=== PATIENT | female | born 1945 | race Caucasian/White ===

== ENCOUNTER 2018-09-12 11:42 | Inpatient (IN) | payer MEDICARE, BC ==
[~2018-09-12] VITALS: Ht 157.5 cm; Wt 80.7 kg
[2018-09-12] VITALS (361 sets, daily range): BP systolic 119–145; BP diastolic 51–60; PULSE 100–120; TEMP 97.3–99.8; O2SAT 94–100
[~2018-09-12 11:42] MED LIST: AGGRENOX ER 251 CER PO; HUMALOG100 U/ML SQ; LANTUS100 U/ML SQ; LEXAPRO20 MG PO; MOBIC15 MG PO; PRINIVIL10 MG PO; SYNTHROID 0.10.15 MG PO
[2018-09-12 13:43] LABS: HEMOGLOBIN 11.8 g/dl (12.5-16.0); MEAN CELL VOLUME 92 fl (80.0-100.0); MEAN CORPUSCULAR HEMOGLOBIN 31 pg (27.0-31.0); MEAN CORPUSCULAR HGB CONC 34 g/dl (33.0-37.0); MEAN PLATELET VOLUME 10.9 fl (7.4-10.4); PLATELET COUNT 265 K/mm3 (130-400); REDCELL DISTRIBUTION WIDTH-CV 13.6 % (11.5-14.5)
[2018-09-12 13:46] LABS: HEMATOCRIT 35.1 % (37.0-47.0)
[2018-09-12 13:47] LABS: PH 5 (5-8); SQUAMOUS EPITHELIAL 0-2 /hpf; URINE APPEARANCE Clear; URINE BACTERIA None Seen /hpf; URINE BILIRUBIN Negative (NEGATIVE); URINE BLOOD Negative (NEGATIVE); URINE COLOR Yellow; URINE GLUCOSE 3+ (NEGATIVE); URINE KETONE Trace (NEGATIVE); URINE LEUKOCYTE ESTERASE Negative (NEGATIVE); URINE NITRATE Negative (NEGATIVE); URINE PROTEIN(semi-quant) Negative (NEGATIVE); URINE RBC 0-2 /hpf; URINE UROBILINOGEN Negative (NEGATIVE)
[2018-09-12 13:55] LABS: ALBUMIN 3.5 gm/dL (3.5-5.0); BILIRUBIN,TOTAL 0.6 mg/dL (0.0-1.0); CALCIUM 8.7 mg/dL (8.4-10.2); POTASSIUM 3.8 mmol/L (3.4-5.0); TOTAL PROTEIN 6.1 gm/dL (6.4-8.2)
[2018-09-12 14:03] LABS: PRE ALBUMIN 13.1 mg/dL (17.6-36.0)
[2018-09-12 14:16] LABS: BAND 13 % (0-10); LYMPHOCYTE 6 % (20.0-51.0); NEUTROPHILS 80 % (42.0-75.2); PLATELET ESTIMATE NORMAL (NORMAL)
[2018-09-12 14:17] LABS: TOXIC GRANULATION PRESENT
[2018-09-12 14:23] LABS: INR 1.2 (0.8-3.0); PROTHROMBIN TIME 13.7 SECONDS (9.7-12.8)
[2018-09-12] MEDS ORDERED: REGLAN 10MG10 MG/TAB PO (14:51)
[2018-09-12] MEDS ORDERED: COZAAR100 MG PO (14:52)
[2018-09-12] MEDS ORDERED: PLAVIX 75MG TAB75 MG PO (14:53)
[2018-09-12 15:41] LABS: COLLECTION METHOD CLEAN CATCH
[2018-09-12 18:34] LABS: MAGNESIUM 1.6 mg/dL (1.6-2.3); PHOSPHOROUS 3.1 mg/dL (2.5-4.5)
[2018-09-12 21:48] LABS: CALCIUM 8.9 mg/dL (8.4-10.2); CREATININE, serum 0.94 mg/dL (0.52-1.25); POTASSIUM 3.5 mmol/L (3.4-5.0)
[2018-09-12 22:03] LABS: TROPONIN-I 0.184 ng/mL (0.000-0.034)
[2018-09-13] VITALS (1036 sets, daily range): BP systolic 104–211; BP diastolic 53–121; PULSE 96–116; TEMP 97.4–100; O2SAT 89–100
[2018-09-13 06:01] LABS: HEMOGLOBIN 11.1 g/dl (12.5-16.0); MEAN CELL VOLUME 94 fl (80.0-100.0); MEAN CORPUSCULAR HEMOGLOBIN 31 pg (27.0-31.0); MEAN CORPUSCULAR HGB CONC 33 g/dl (33.0-37.0); MEAN PLATELET VOLUME 11.1 fl (7.4-10.4); PLATELET COUNT 213 K/mm3 (130-400); RED BLOOD COUNT 3.59 M/mm3 (4.10-5.30); REDCELL DISTRIBUTION WIDTH-CV 13.9 % (11.5-14.5)
[2018-09-13 06:10] LABS: HEMATOCRIT 33.7 % (37.0-47.0)
[2018-09-13 06:16] LABS: CALCIUM 8.6 mg/dL (8.4-10.2); CREATININE, serum 0.86 mg/dL (0.52-1.25); PHOSPHOROUS 3.7 mg/dL (2.5-4.5); POTASSIUM 5.1 mmol/L (3.4-5.0)
[2018-09-13 07:39] LABS: BAND 25 % (0-10); LYMPHOCYTE 2 % (20.0-51.0); NEUTROPHILS 65 % (42.0-75.2); PLATELET ESTIMATE NORMAL (NORMAL)
[2018-09-13 07:40] LABS: TOXIC GRANULATION PRESENT
[2018-09-13 11:19] LABS: PARTIAL THROMBOPLASTIN TIME 26.1 SECONDS (26.0-37.0)
[2018-09-14 03:14] LABS: HEMOGLOBIN 10.9 g/dl (12.5-16.0); MEAN CELL VOLUME 92 fl (80.0-100.0); MEAN CORPUSCULAR HEMOGLOBIN 30 pg (27.0-31.0); MEAN CORPUSCULAR HGB CONC 33 g/dl (33.0-37.0); MEAN PLATELET VOLUME 10.6 fl (7.4-10.4); PLATELET COUNT 184 K/mm3 (130-400); RED BLOOD COUNT 3.58 M/mm3 (4.10-5.30); REDCELL DISTRIBUTION WIDTH-CV 14.2 % (11.5-14.5)
[2018-09-14 03:17] LABS: HEMATOCRIT 32.9 % (37.0-47.0)
[2018-09-14 03:25] LABS: ALBUMIN 2.6 gm/dL (3.5-5.0); BILIRUBIN UNCONJUGATED 0.4 mg/dL (0.0-1.1); BILIRUBIN,DIRECT 0.2 mg/dL (0.0-0.4); BILIRUBIN,TOTAL 0.6 mg/dL (0.0-1.0); CREATININE, serum 0.6 mg/dL (0.52-1.25); POTASSIUM 3.7 mmol/L (3.4-5.0); TOTAL PROTEIN 5.3 gm/dL (6.4-8.2)
[2018-09-14 03:37] LABS: BAND 17 % (0-10); EOSINOPHIL 1 % (0-4); NEUTROPHILS 64 % (42.0-75.2)
[2018-09-14 03:54] LABS: HYPOCHROMIA 1+; LYMPHOCYTE 16 % (20.0-51.0); PLATELET ESTIMATE NORMAL (NORMAL)
[2018-09-14 04:02] LABS: TROPONIN-I 0.106 ng/mL (0.000-0.034)
[2018-09-14 05:07] VITALS: BP 162/73; PULSE 96; TEMP 98.3
[2018-09-14 07:55] VITALS: BP 161/73; PULSE 98; TEMP 97.9
[2018-09-14 10:36] LABS: PATHOLOGY DIFF REVIEW OK
[2018-09-14 12:00] VITALS: BP 156/89; PULSE 96; TEMP 98
[2018-09-14 16:00] VITALS: BP 183/85; PULSE 92; TEMP 98.1
[2018-09-14 20:00] VITALS: BP 165/60; BP 165/90; PULSE 89; TEMP 97.4
[2018-09-15] VITALS (16 sets, daily range): BP systolic 128–1447; BP diastolic 56–75; PULSE 66–92; TEMP 97.1–98.7
[2018-09-15 03:38] LABS: BASO % 0.2 % (0.0-2.0); EOS # 0.4 (0.0-0.7); EOS % 2.5 % (0-4.0); GRAN # 14.2 (1.4-6.5); GRAN % 83.4 % (42.2-75.2); HEMOGLOBIN 10.1 g/dl (12.5-16.0); LYMPH # 1.5 (1.2-3.4); LYMPH % 8.5 % (20.0-51.0); MEAN CELL VOLUME 90 fl (80.0-100.0); MEAN CORPUSCULAR HEMOGLOBIN 31 pg (27.0-31.0); MEAN CORPUSCULAR HGB CONC 34 g/dl (33.0-37.0); MEAN PLATELET VOLUME 10.6 fl (7.4-10.4); MONO # 0.8 (0.1-0.6); MONO % 4.9 % (1.7-9.3); PLATELET COUNT 179 K/mm3 (130-400); RED BLOOD COUNT 3.26 M/mm3 (4.10-5.30); REDCELL DISTRIBUTION WIDTH-CV 13.9 % (11.5-14.5)
[2018-09-15 03:40] LABS: HEMATOCRIT 29.4 % (37.0-47.0)
[2018-09-15 03:49] LABS: CALCIUM 7.9 mg/dL (8.4-10.2); CREATININE, serum 0.53 mg/dL (0.52-1.25)
[2018-09-15 03:51] LABS: POTASSIUM 2.7 mmol/L (3.4-5.0)
[2018-09-15 07:27] LABS: CALCIUM 8.1 mg/dL (8.4-10.2); CREATININE, serum 0.49 mg/dL (0.52-1.25); MAGNESIUM 1.9 mg/dL (1.6-2.3); POTASSIUM 3.1 mmol/L (3.4-5.0)
[2018-09-16] VITALS (14 sets, daily range): BP systolic 127–184; BP diastolic 47–83; PULSE 67–94; TEMP 97.5–98.7
[2018-09-16 06:55] LABS: BASO % 0.3 % (0.0-2.0); EOS # 0.8 (0.0-0.7); EOS % 5.8 % (0-4.0); GRAN # 10.6 (1.4-6.5); GRAN % 73.5 % (42.2-75.2); HEMOGLOBIN 11.4 g/dl (12.5-16.0); LYMPH # 1.9 (1.2-3.4); LYMPH % 12.9 % (20.0-51.0); MEAN CELL VOLUME 91 fl (80.0-100.0); MEAN CORPUSCULAR HEMOGLOBIN 30 pg (27.0-31.0); MEAN CORPUSCULAR HGB CONC 33 g/dl (33.0-37.0); MEAN PLATELET VOLUME 11.2 fl (7.4-10.4); MONO % 7.1 % (1.7-9.3); PLATELET COUNT 195 K/mm3 (130-400); RED BLOOD COUNT 3.76 M/mm3 (4.10-5.30)
[2018-09-16 07:04] LABS: CALCIUM 8.2 mg/dL (8.4-10.2); CREATININE, serum 0.51 mg/dL (0.52-1.25); POTASSIUM 3.3 mmol/L (3.4-5.0)
[2018-09-16 07:23] LABS: HEMATOCRIT 34.2 % (37.0-47.0)
[2018-09-17 03:51] VITALS: BP 161/64; PULSE 87; TEMP 98.4
[2018-09-17 07:03] LABS: BASO % 0.3 % (0.0-2.0); EOS # 0.5 (0.0-0.7); EOS % 3.7 % (0-4.0); GRAN # 9.3 (1.4-6.5); GRAN % 73.1 % (42.2-75.2); HEMOGLOBIN 10.3 g/dl (12.5-16.0); LYMPH # 1.5 (1.2-3.4); LYMPH % 11.6 % (20.0-51.0); MEAN CELL VOLUME 91 fl (80.0-100.0); MEAN CORPUSCULAR HEMOGLOBIN 31 pg (27.0-31.0); MEAN CORPUSCULAR HGB CONC 34 g/dl (33.0-37.0); MEAN PLATELET VOLUME 10.9 fl (7.4-10.4); MONO # 1.2 (0.1-0.6); MONO % 9.7 % (1.7-9.3); PLATELET COUNT 188 K/mm3 (130-400); RED BLOOD COUNT 3.35 M/mm3 (4.10-5.30); REDCELL DISTRIBUTION WIDTH-CV 13.8 % (11.5-14.5)
[2018-09-17 07:05] LABS: HEMATOCRIT 30.4 % (37.0-47.0)
[2018-09-17 07:07] LABS: INR 1.2 (0.8-3.0); PROTHROMBIN TIME 13.2 SECONDS (9.7-12.8)
[2018-09-17 07:19] LABS: CALCIUM 7.9 mg/dL (8.4-10.2); CREATININE, serum 0.54 mg/dL (0.52-1.25); POTASSIUM 3.9 mmol/L (3.4-5.0)
[2018-09-17 08:00] VITALS: BP 161/64; PULSE 85; TEMP 98.2
[2018-09-17 12:24] VITALS: BP 147/62; PULSE 86; TEMP 97.9
[2018-09-17 17:06] VITALS: BP 149/59; PULSE 86; TEMP 97.3
[2018-09-17 19:26] VITALS: BP 141/51; PULSE 87; TEMP 97.5
[2018-09-17 23:20] VITALS: BP 149/58; PULSE 90; TEMP 98.5
[2018-09-18 04:22] VITALS: BP 157/65; PULSE 91; TEMP 97.8
[2018-09-18 06:08] LABS: HEMOGLOBIN 10.1 g/dl (12.5-16.0); MEAN CELL VOLUME 90 fl (80.0-100.0); MEAN CORPUSCULAR HEMOGLOBIN 30 pg (27.0-31.0); MEAN CORPUSCULAR HGB CONC 34 g/dl (33.0-37.0); MEAN PLATELET VOLUME 10.7 fl (7.4-10.4); PLATELET COUNT 185 K/mm3 (130-400); RED BLOOD COUNT 3.33 M/mm3 (4.10-5.30); REDCELL DISTRIBUTION WIDTH-CV 13.8 % (11.5-14.5)
[2018-09-18 06:17] LABS: HEMATOCRIT 30.1 % (37.0-47.0)
[2018-09-18 06:24] LABS: ALBUMIN 2.2 gm/dL (3.5-5.0); BILIRUBIN,TOTAL 0.4 mg/dL (0.0-1.0); CALCIUM 8.2 mg/dL (8.4-10.2); CREATININE, serum 0.5 mg/dL (0.52-1.25); POTASSIUM 3.4 mmol/L (3.4-5.0); TOTAL PROTEIN 4.8 gm/dL (6.4-8.2)
[2018-09-18 06:42] LABS: INR 1.2 (0.8-3.0); PROTHROMBIN TIME 13.5 SECONDS (9.7-12.8)
[2018-09-18 07:02] LABS: BAND 20 % (0-10); EOSINOPHIL 6 % (0-4); LYMPHOCYTE 10 % (20.0-51.0); METAMYELOCYTE 1 % (0-0); NEUTROPHILS 53 % (42.0-75.2); PLATELET ESTIMATE NORMAL (NORMAL)
[2018-09-18 08:46] VITALS: BP 163/61; PULSE 95; TEMP 98.1
[2018-09-18] MEDS ORDERED: ARICEPT 5MG PO (08:49)
[2018-09-18] MEDS ORDERED: AMOXICILLIN 8751 TAB PO (08:50)
[2018-09-18] MEDS ORDERED: NORVASC 10MG10 MG PO (08:52)
[2018-09-18] MEDS ORDERED: ASPI325T6 PO (08:54)
[2018-09-18] MEDS ORDERED: LANTUS100 U/ML SQ (08:55)
[2018-09-18] MEDS ORDERED: HUMALOG100 U/ML SQ (08:55)
[2018-09-18] MEDS ORDERED: ULTRAM 50MG TAB50 MG PO (08:58)
[2018-09-18 10:30] VITALS: BP 163/61; PULSE 95; TEMP 98.1
== END 2018-09-18 11:27 | DRG 469 ==
LOC: SURG 11:42 → ICU 17:54 → SURG 09-13 17:48
PROVIDERS: Hospitalist; Internal Medicine Cardiovascular Disease; Internal Medicine Interventional Cardiology; Orthopaedic Surgery; Physician Assistant
PROC: B2111ZZ Fluoroscopy of Multiple Coronary Arteries using Low Osmolar Contrast (ICD-10-PCS; 2018-09-15)
PROC: B2151ZZ Fluoroscopy of Left Heart using Low Osmolar Contrast (ICD-10-PCS; 2018-09-15)
PROC: 4A023N7 Measurement of Cardiac Sampling and Pressure, Left Heart, Percutaneous Approach (ICD-10-PCS; 2018-09-15)
PROC: 0SRS0J9 Replacement of Left Hip Joint, Femoral Surface with Synthetic Substitute, Cemented, Open Approach (ICD-10-PCS; principal; 2018-09-16 16:00)
DX: S72.002A Fracture of unspecified part of neck of left femur, initial encounter for closed fracture (principal); E11.00 Type 2 diabetes mellitus with hyperosmolarity without nonketotic hyperglycemic-hyperosmolar coma (NKHHC); G93.41 Metabolic encephalopathy; I21.A1 Myocardial infarction type 2; W18.30XA Fall on same level, unspecified, initial encounter; Z79.4 Long term (current) use of insulin; I10 Essential (primary) hypertension; Z87.891 Personal history of nicotine dependence; Z86.73 Personal history of transient ischemic attack (TIA), and cerebral infarction without residual deficits; E87.6 Hypokalemia; F03.90 Unspecified dementia, unspecified severity, without behavioral disturbance, psychotic disturbance, mood disturbance, and anxiety; I27.20 Pulmonary hypertension, unspecified; I08.1 Rheumatic disorders of both mitral and tricuspid valves
CPT/HCPCS: 99222-AI; 99232-AI; 99239; A9284; A9585; C1713; C1769; C1776; J0171; J0360; J0690; J1644; J1815; J2250; J2270; J2370; J2543; J2704; J3010; J3370; J3475; J3480; J7030; J7040; J7050; Q9967